=== PATIENT | male | born 1960 | race Caucasian/White ===

== ENCOUNTER 2024-09-28 13:21 | Outpatient (CLI) | payer MEDICARE, SELFPAY | END 2024-09-28 13:22 | disposition home or self-care (01) | LOC: INJ CL 13:26 | PROVIDERS: Visit Provider Family Medicine | DX: M54.16 Radiculopathy, lumbar region (principal); M51.369 Other intervertebral disc degeneration, lumbar region without mention of lumbar back pain or lower extremity pain | CPT/HCPCS: 64483; J1100; Q9966 ==

== ENCOUNTER 2024-10-19 10:06 | Outpatient (CLI) | payer MEDICARE, SELFPAY | END 2024-10-19 10:07 | disposition home or self-care (01) | LOC: INJ CL 10:07 | PROVIDERS: Visit Provider Family Medicine | DX: M54.16 Radiculopathy, lumbar region (principal); M51.369 Other intervertebral disc degeneration, lumbar region without mention of lumbar back pain or lower extremity pain | CPT/HCPCS: 64483; J1100; Q9966 ==